=== PATIENT | male | born 1985 | race Caucasian/White ===

== ENCOUNTER → 2020-09-02 09:21 | Outpatient (CLI) | payer OTHER, SELFPAY ==
--- NOTE | 2020-09-02 | DI.MRI.S_ITS ---
PROCEDURE: MR WRIST RT W CON INDICATIONS: Pain in right wrist TECHNIQUE: After the administration of 3-4 mL of dilute intra-articular Gadolinium contrast into the radiocarpal compartment, coronal T1 spin echo with fat saturation and T2 fast spin echo with fat saturation, axial T1 spin echo and T2 fast spin echo with fat saturation, sagittal T1 spin echo with and without fat saturation through the wrist. COMPARISON: None. FINDINGS: Image quality: Excellent. Bones and cartilage: The carpal bones are normally aligned. No bone marrow contusions or fractures. No evidence for avascular necrosis. Overlying cartilage surfaces appear normal. Carpal ligaments: The scapholunate and lunotriquetral ligaments appear intact, without gadolinium extravasation into the mid-carpal compartment. The radioscaphocapitate and radiolunotriquetral ligaments appear intact. The arcuate ligament and short radiolunate ligament also appear normal. The dorsal intercarpal and radiotriquetral ligaments appear intact. On sagittal images, the pisohamate ligament appears intact. Triangular fibrocartilage complex: There is suggestion of focal perforation involving lateral periphery of triangular fibrocartilage near its radial insertion with trace amount of contrast material seen in distal radial ulnar joint space. gadolinium extravasation into the distal radioulnar joint. The adjacent meniscal homolog appears normal. The ulnar collateral ligament appears intact. The extensor carpi ulnaris tendon is normal in location and morphology. Tendons and soft tissues: The carpal tunnel structures appear normal, including the median nerve. The ulnar nerve appears normal within Guyon's canal. All six extensor tendon compartments demonstrate normal morphology, without pathologic tendon sheath fluid. No soft tissue ganglion cysts. IMPRESSION: 1. Finding is suggestive of tiny focal perforation involving triangular fibrocartilage near its radial insertion with trace amount of contrast extending to distal radial ulnar joint. 2. Intrinsic and extrinsic wrist ligaments are grossly intact. 3. Extensor and flexor tendons of wrist are grossly intact. 4. No marrow edema. No fracture or dislocation. No suspicious bony lesion. Dictated by: Mumtaz Mejía M.D. on 09/02/2020 at 10:24 Approved by: Mumtaz Mejía M.D. on 09/02/2020 at 10:30
--- NOTE | 2020-09-02 | DI.RAD.S_ITS ---
PROCEDURE: FL WRIST INJECTION MR/CT RT INDICATIONS: Pain in right wrist COMPARISON: [facility], MR, MR WRIST RT W CON, 09/02/2020, 9:59. TECHNIQUE: After informed consent had been obtained, the wrist was examined fluoroscopically, and a site chosen for injection of the radiocarpal compartment from a dorsal approach. Skin was prepped and draped in a sterile fashion and 1% lidocaine infiltrated from the skin down to the articular surface. A hypodermic needle was then introduced into the articular space and a modest amount of contrast medium was instilled confirming intra-articular needle tip placement. This was followed by approximately 4 mL of a dilute gadolinium solution. Needle was removed and dressing was applied. The patient experienced no complications throughout the procedure and left the fluoroscopic suite in no apparent distress. FINDINGS: A single fluoroscopic spot image demonstrates intra-articular location to injected iodinated contrast. IMPRESSION: Successful fluoroscopic-guided administration of dilute Gadolinium solution for wrist MR arthrogram. Dictated by: Jose Raul Basilio M.D. on 09/02/2020 at 11:25 Approved by: Jose Raul Basilio M.D. on 09/02/2020 at 11:26
== END ==
PROVIDERS: Referring Provider Orthopaedic Surgery; Visit Provider Orthopaedic Surgery
DX: M25.531 Pain in right wrist (principal)
CPT/HCPCS: 20605; 73222; 77002

== ENCOUNTER 2023-02-19 16:56 | Emergency (ER) | payer OTHER, SELFPAY ==
[2023-02-19 17:04] VITALS: BP 147/109; PULSE 69; RESP 20; TEMP 36.9; O2SAT 98; BMI 33.1
--- NOTE | 2023-02-19 17:30 | DI.CT.S_ITS ---
PROCEDURE: CT ABDOMEN PELVIS W CON INDICATIONS: Periumbilical pain, RLQ pain TECHNIQUE: After the administration of intravenous contrast, axial sections acquired from the lung bases to the pubic symphysis. Coronal and sagittal reformats were performed. For radiation dose reduction, the following was used: automated exposure control, adjustment of mA and/or kV according to patient size. COMPARISON: None. FINDINGS: Image quality: Excellent. Lung bases: Unremarkable. Heart: No significant findings. ABDOMEN: Liver: Unremarkable. Gallbladder: Unremarkable. Biliary ducts: Unremarkable. Pancreas: Unremarkable. Spleen: Unremarkable. Adrenal Glands: Unremarkable. Kidneys and Ureters: Unremarkable. Stomach and Bowel: Stomach, small bowel loops, and colon are unremarkable. Normal appendix. Peritoneum: No abnormal intraperitoneal fluid. No free air. Ventral Wall: No hernias. Abdominal Nodes: No retroperitoneal or mesenteric adenopathy by size criteria. Vessels: Aorta and inferior vena cava are normal in size. PELVIS: Pelvic Organs: Unremarkable. Bladder: Unremarkable. Pelvic Nodes: No enlarged lymph nodes. Miscellaneous: No hernias are seen. Bones: Unremarkable. IMPRESSION: 1. No acute process. 2. Normal appendix. Dictated by: Roddy Germain M.D. on 02/19/2023 at 17:59 Approved by: Roddy eGrmain M.D. on 02/19/2023 at 18:00
[2023-02-19 17:35] LABS: Add Manual Diff / Slide Review NO; Basophils Absolute Auto 100 /uL (0-100); Basophils Percent Auto 0.7 % (0-2); Eosinophils Absolute Auto 100 /uL (0-450); Eosinophils Percent Auto 0.6 % (2-4); Hematocrit 45.9 % (41-53); Hemoglobin 15.9 g/dL (13.5-17.5); Lymphocytes Absolute Auto 2400 /uL (1100-4500); Lymphocytes Percent Auto 22.9 % (25-40); Mean Corpuscular HGB Conc 34.6 % (30-36); Mean Corpuscular Hemoglobin 29.9 PG (26-34); Mean Corpuscular Volume 86.6 fL (80-100); Monocytes Absolute Auto 800 /uL (0-900); Monocytes Percent Auto 7.4 % (3-14); Neutrophils Absolute Auto 7100 /uL (1500-7000); Neutrophils Percent Auto 68.4 % (50-75); Platelet Count 270 X10^3/uL (150-400); Red Blood Cell Count 5.31 X10^6/uL (4.5-5.9); Red Cell Distribution Width 13.5 % (11.6-14.8); White Blood Cell Count 10.3 X10^3/uL (4.5-11.0)
[2023-02-19 17:49] LABS: Alanine Aminotransferase 40 IU/L (<50); Albumin 4.7 g/dL (3.5-5.0); Albumin Globulin Ratio 1.3 (1.0-2.8); Alkaline Phosphatase 52 U/L (38-126); Aspartate Aminotransferase 23 IU/L (17-59); BUN Creatinine Ratio 19.5 (6-22); Bilirubin Total 1.2 mg/dL (0.2-1.3); Blood Urea Nitrogen 22 mg/dL (9-20); Calcium 9.5 mg/dL (8.4-10.2); Carbon Dioxide 30 mmol/L (22-32); Chloride 101 mmol/L (98-107); Estimated Glomerular Filt Rate > 60 mL/min (>60); Globulin 3.7 g/dL (1.7-4.1); Glucose 101 mg/dL (70-100); HEMOLYSIS 20 (0-50); Lipase 91 U/L (23-300); Potassium 4.1 mmol/L (3.4-5.1); Sodium 138 mmol/L (137-145); Total Protein 8.4 g/dL (6.3-8.2)
[2023-02-19] MEDS: KETOROLAC 30 MG/ML VIAL 15 MG IV (18:13)
[2023-02-19 18:34] VITALS: BP 121/77; PULSE 59; RESP 16; O2SAT 98
--- NOTE | 2023-02-19 19:04 | ED.ABDPAIN ---
HPI - Abdominal Pain <Wu Garduno PA-C - Last Filed: 02/19/23 19:13> General Chief Complaint: Abdominal Pain Stated Complaint: D/no bowel movement T-4 Time Seen by Provider: 02/19/23 17:20 Source: patient Mode of arrival: Ambulatory History of Present Illness HPI narrative: 37-year-old male with no reported past medical history presents to the ED with 4 days of abdominal pain and constipation. Patient states that 4 days ago, he had a watery bowel movement along with some abdominal discomfort. Patient states since then he has had no bowel movement, this afternoon he started experiencing periumbilical and right-sided abdominal pain. Patient denies fever, chills, chest pain, shortness of breath, nausea, vomiting, hematochezia, melena. Patient has not had any abdominal surgeries. Related Data Allergies Allergy/AdvReac Type Severity Reaction Status Date / Time No Known Drug Allergies Allergy Verified 02/19/23 17:12 Review of Systems <Wu Garduno PA-C - Last Filed: 02/19/23 19:13> Review of Systems ROS Unobtainable: All systems reviewed & are unremarkable except as noted in HPI and below Constitutional Constitutional: Denies chills, Denies fatigue, Denies fever(s), Denies frequent falls, Denies lethargy and Denies weakness Eyes Eyes: Denies change in vision, Denies eye discharge, Denies irritation and Denies loss of vision ENT Ears, Nose, Mouth, and Throat: Denies change in voice, Denies dizziness, Denies neck pain, Denies sore throat and Denies throat swelling Cardiovascular Cardiovascular: Denies chest pain, Denies irregular heart rhythm, Denies lightheadedness, Denies palpitations, Denies dyspnea, Denies dyspnea on exertion and Denies orthopnea Respiratory Respiratory: Denies cough, Denies dyspnea, Denies dyspnea on exertion and Denies wheezing Gastrointestinal Gastrointestinal: Reports abdominal pain, Denies change in bowel habits, Reports constipation, Denies diarrhea, Denies nausea and Denies vomiting Genitourinary Genitourinary: Denies hematuria, Denies flank pain, Denies urinary incontinence and Denies urinary urgency Musculoskeletal Musculoskeletal: Denies back pain, Denies muscle weakness, Denies neck pain, Denies numbness and Denies tingling Integumentary/Breasts Skin/Breast: Denies pruritus, Denies erythema, Denies rash and Denies wounds Neurologic Neurologic: Denies behavioral changes, Denies confusion, Denies dizziness, Denies frequent falls, Denies loss of vision, Denies numbness, Denies tingling and Denies weakness Psychiatric Psychiatric: Denies anxiety, Denies behavioral changes, Denies confusion, Denies depression, Denies homicidal ideation and Denies suicidal ideation Endocrine Endocrine: Denies fatigue, Denies flushing and Denies palpitations Hematologic/Lymphatic Hematologic/Lymphatic: Denies easy bruising Allergic/Immunologic Allergic/Immunologic: Denies urticaria, Denies throat swelling and Denies wheezing Patient History <Wu Garduno PA-C - Last Filed: 02/19/23 19:13> Social History Smoking Status: Current every day smoker Smoking Status: Current every day smoker tobacco type: vaping alcohol intake frequency: a few times a week Alcohol type: wine Substance Use Type: does not use Exam <Wu Garduno PA-C - Last Filed: 02/19/23 19:13> Narrative Exam Narrative: Const General:?cooperative, healthy appearing and comfortable [facility] Head:?normal to inspection Ears:?hearing grossly normal bilaterally Nose:?external nose normal Face and sinus:?normal facial exam and sinuses nontender Mouth:?oral mucosae normal Throat:?posterior oropharynx normal Eyes General:?appearance normal, both eyes and all related structures Neck Neck:?normal visual inspection and no lymphadenopathy noted Resp Effort & Inspection:?normal respiratory effort Auscultation:?clear to auscultation bilaterally Cardio Rate:?regular rate Rhythm:?regular rhythm GI Abdomen is soft, nondistended. Abdomen is tender in the periumbilical and right lower quadrant. Neuro General:?patient alert, patient awake and patient oriented x3 Initial Vital Signs Initial Vital Signs: Vital Signs Temperature 98.5 F 02/19/23 17:04 Pulse Rate 69 02/19/23 17:04 Respiratory Rate 20 02/19/23 17:04 Blood Pressure 147/109 H 02/19/23 17:04 Pulse Oximetry 98 02/19/23 17:04 Oxygen Delivery Method Room Air 02/19/23 17:04 <Phill Barajas DO - Last Filed: 02/20/23 07:07> Initial Vital Signs Initial Vital Signs: Vital Signs Temperature 98.5 F 02/19/23 17:04 Pulse Rate 69 02/19/23 17:04 Respiratory Rate 20 02/19/23 17:04 Blood Pressure 147/109 H 02/19/23 17:04 Pulse Oximetry 98 02/19/23 17:04 Oxygen Delivery Method Room Air 02/19/23 17:04 Course <Wu Garduno PA-C - Last Filed: 02/19/23 19:13> Orders Ordered: Discontinued Medications Ketorolac Tromethamine (Ketorolac 30 Mg/Ml Vial) 15 mg IV NOW ONE Stop: 02/19/23 18:07 Last Admin: 02/19/23 18:13 Dose: 15 mg Documented By: AMV Ondansetron HCl (Ondansetron 4 Mg Odt) 4 mg PO NOW PRN PRN Reason: Nausea And Vomiting Ondansetron HCl (Ondansetron 4 Mg/2 Ml Inj) 4 mg IV NOW PRN PRN Reason: Nausea And Vomiting Vital Signs Vital signs: Vital Signs - 8 hr 02/19/23 17:04 02/19/23 18:34 Temperature 98.5 F Pulse Rate 69 59 L Respiratory Rate 20 16 Blood Pressure 147/109 H 121/77 Pulse Oximetry 98 98 Oxygen Delivery Method Room Air Room Air <Phill Barajas DO - Last Filed: 02/20/23 07:07> Orders Ordered: Discontinued Medications Ketorolac Tromethamine (Ketorolac 30 Mg/Ml Vial) 15 mg IV NOW ONE Stop: 02/19/23 18:07 Last Admin: 02/19/23 18:13 Dose: 15 mg Documented By: AMV Ondansetron HCl (Ondansetron 4 Mg Odt) 4 mg PO NOW PRN PRN Reason: Nausea And Vomiting Ondansetron HCl (Ondansetron 4 Mg/2 Ml Inj) 4 mg IV NOW PRN PRN Reason: Nausea And Vomiting Vital Signs Vital signs: Vital Signs - 8 hr 02/19/23 17:04 02/19/23 18:34 Temperature 98.5 F Pulse Rate 69 59 L Respiratory Rate 20 16 Blood Pressure 147/109 H 121/77 Pulse Oximetry 98 98 Oxygen Delivery Method Room Air Room Air MDM - Abdominal Pain <Wu Garduno PA-C - Last Filed: 02/19/23 19:13> Lab Data 10/02/23 17:26 02/19/23 17:26 Labs: Lab Results 02/19/23 02/19/23 Range/Units 17:26 17:26 WBC 10.3 (4.5-11.0) X10^3/uL RBC 5.31 (4.5-5.9) X10^6/uL Hgb 15.9 (13.5-17.5) g/dL Hct 45.9 (41-53) % MCV 86.6 (80-100) fL MCH 29.9 (26-34) PG MCHC 34.6 (30-36) % RDW 13.5 (11.6-14.8) % Plt Count 270 (150-400) X10^3/uL Neut % (Auto) 68.4 (50-75) % Lymph % (Auto) 22.9 L (25-40) % Dawson % (Auto) 7.4 (3-14) % Eos % (Auto) 0.6 L (2-4) % Baso % (Auto) 0.7 (0-2) % Neut # (Auto) 7100 H (5061-0434) /uL Lymph # (Auto) 2400 (5288-8631) /uL Dawson # (Auto) 800 (0-900) /uL Eos # (Auto) 100 (0-450) /uL Baso # (Auto) 100 (0-100) /uL Sodium 138 (137-145) mmol/L Potassium 4.1 (3.4-5.1) mmol/L Chloride 101 (98-107) mmol/L Carbon Dioxide 30 (22-32) mmol/L BUN 22 H (9-20) mg/dL Creatinine 1.13 (0.66-1.25) mg/dL Estimated GFR > 60 (>60) mL/min BUN/Creatinine Ratio 19.5 (6-22) Glucose 101 H (70-100) mg/dL Calcium 9.5 (8.4-10.2) mg/dL Total Bilirubin 1.2 (0.2-1.3) mg/dL AST 23 (17-59) IU/L ALT 40 (<50) IU/L Alkaline Phosphatase 52 (38-126) U/L Total Protein 8.4 H (6.3-8.2) g/dL Albumin 4.7 (3.5-5.0) g/dL Globulin 3.7 (1.7-4.1) g/dL Albumin/Globulin Ratio 1.3 (1.0-2.8) Lipase 91 (23-300) U/L MDM Narrative Medical decision making narrative: 37-year-old male with no reported past medical history presents to the ED with 4 days of abdominal pain and constipation. Concern for constipation versus appendicitis versus other intra-abdominal pathology versus other. Will obtain labs, CT abdomen pelvis. Will give Toradol for pain. Will reassess. CT abdomen pelvis shows a normal appendix and no acute process. Patient's symptoms likely due to viral gastroenteritis followed by constipation. Recommend bowel regimen with magnesium citrate, MiraLax, plenty of hydration. Recommend follow-up with PCP. ED return precautions discussed with patient. Patient verbalized understanding. Medical records reviewed: Yes <Phill Barajas DO - Last Filed: 02/20/23 07:07> Lab Data Labs: Lab Results 02/19/23 02/19/23 Range/Units 17:26 17:26 WBC 10.3 (4.5-11.0) X10^3/uL RBC 5.31 (4.5-5.9) X10^6/uL Hgb 15.9 (13.5-17.5) g/dL Hct 45.9 (41-53) % MCV 86.6 (80-100) fL MCH 29.9 (26-34) PG MCHC 34.6 (30-36) % RDW 13.5 (11.6-14.8) % Plt Count 270 (150-400) X10^3/uL Neut % (Auto) 68.4 (50-75) % Lymph % (Auto) 22.9 L (25-40) % Dawson % (Auto) 7.4 (3-14) % Eos % (Auto) 0.6 L (2-4) % Baso % (Auto) 0.7 (0-2) % Neut # (Auto) 7100 H (1697-5895) /uL Lymph # (Auto) 2400 (7996-3278) /uL Dawson # (Auto) 800 (0-900) /uL Eos # (Auto) 100 (0-450) /uL Baso # (Auto) 100 (0-100) /uL Sodium 138 (137-145) mmol/L Potassium 4.1 (3.4-5.1) mmol/L Chloride 101 (98-107) mmol/L Carbon Dioxide 30 (22-32) mmol/L BUN 22 H (9-20) mg/dL Creatinine 1.13 (0.66-1.25) mg/dL Estimated GFR > 60 (>60) mL/min BUN/Creatinine Ratio 19.5 (6-22) Glucose 101 H (70-100) mg/dL Calcium 9.5 (8.4-10.2) mg/dL Total Bilirubin 1.2 (0.2-1.3) mg/dL AST 23 (17-59) IU/L ALT 40 (<50) IU/L Alkaline Phosphatase 52 (38-126) U/L Total Protein 8.4 H (6.3-8.2) g/dL Albumin 4.7 (3.5-5.0) g/dL Globulin 3.7 (1.7-4.1) g/dL Albumin/Globulin Ratio 1.3 (1.0-2.8) Lipase 91 (23-300) U/L Discharge Plan Departure Patient Disposition: Home Clinical Impression: Abdominal pain, Constipation Instructions: DI for Abdominal Pain-Adult, DI for Constipation Activity Restrictions/Additional Instructions: You were evaluated in the ED today for abdominal pain. Your labs and CT were normal. It appears that your symptoms are likely due to a viral gastroenteritis and constipation. Please continue to stay well hydrated. You may try magnesium citrate 300 which is available in the drug store. You may also take MiraLax nightly for the next 2-4 weeks. Please follow-up with your PCP for further evaluation. Return to the ED if your worsening symptoms, fever, chills. Stand Alone Forms: Patient Portal/API <Phill Barajas, DO - Last Filed: 02/20/23 07:07> Cosign ED Attending Cosrosalindaature Attestation: Dr Barajas Co-Sign Statement: I was available for consultation during this patient's emergency department visit. This chart is signed by myself for administrative purposes only. I did not have direct contact with this patient during this visit. They were seen independently by the APC.
== END 2023-02-19 18:35 | disposition home or self-care (01) ==
PROVIDERS: Emergency Medicine; Emergency Provider Student in an Organized Health Care Education/Training Program
DX: R10.9 Unspecified abdominal pain (principal); K59.00 Constipation, unspecified
CPT/HCPCS: 36415; 74177; 80053; 83690; 85025; 96374; 99284; J1885; Q9967

== ENCOUNTER → 2024-07-04 11:11 | Outpatient (CLI) | payer OTHER, SELFPAY ==
--- NOTE | 2024-07-04 | DI.RAD.S_ITS ---
PROCEDURE: XR SACRUM COCCYX MIN 2V INDICATIONS: low back pain TECHNIQUE: 3 views of the sacrum and coccyx acquired. COMPARISON: None. FINDINGS: Bones: No fractures or dislocations. No suspicious bony lesions. Soft tissues: Visualized bowel gas pattern is normal. No suspicious soft tissue densities. IMPRESSION: No evidence of acute osseous abnormality. Dictated by: Gary Rollins M.D. on 07/05/2024 at 16:13 Approved by: Gary Rollins M.D. on 07/05/2024 at 16:15
== END ==
PROVIDERS: Referring Provider Chiropractor; Visit Provider Chiropractor
DX: M54.50 Low back pain, unspecified (principal)
CPT/HCPCS: 72220